=== PATIENT | male | born 1985 | race Caucasian/White ===

== ENCOUNTER 2021-11-06 13:23 | Emergency (ER) | payer OTHER ==
[~2021-11-06] VITALS: Ht 175.3 cm; Wt 95.5 kg
[2021-11-06 13:37] VITALS: BP 121/89
[2021-11-06] MEDS ORDERED: AMOXICILLIN TRIHYDRATE 250 MG CAPSULE PO ONE (15:30)
[2021-11-06] MEDS ORDERED: DEXAMETHASONE SOD PHOS 4 MG/ML VIAL IM ONE (15:30)
[2021-11-06] MEDS ORDERED: AMOX500C2 PO (15:34)
== END 2021-11-06 15:51 | disposition home or self-care (01) ==
LOC: EMS 13:23
DX: J02.0 Streptococcal pharyngitis (principal)
CPT/HCPCS: 87430; 96372; 99283; J1100